=== PATIENT | male | born 1955 | race Caucasian/White ===

== ENCOUNTER → 2020-08-14 | Day surgery (SDC) | payer OTHER ==
[~2020-08-14] VITALS: Ht 170.2 cm; Wt 105.8 kg
[~2020-08-14] MED LIST: FLOMAX 0.4 MG0.4 MG PO; KEFLEX500 MG PO; MAG-OXIDE 400M400 MG PO; NORCO 5-325 TA1 EAC1 PO; OSTERA TABLET1 EACH PO; PEPCID AC20 MG PO; PERCOCET 5-3251 EACH PO; VIBRAMYCIN100 MG PO; VOLTAREN **OUT50 MG PO; ZOFRAN4 MG PO
[2020-08-14 07:47] LABS: HCT 44.5 % (42.0-52.0); HGB 15.1 g/dl (13.2-18.0); MCH 30.2 pg (25.0-31.0); MCHC 33.9 g/dL (32.0-36.0); MPV 9.9 fL (6.0-9.5); RDW 12.8 % (11.5-14.0); WBC 5.3 K/uL (4.0-10.5)
[2020-08-14 08:04] LABS: BUN/CREAT RATIO (CALC) 19.8 RATIO; CREATININE 0.91 mg/dL (0.67-1.17); GLOBULIN (CALCULATION) 3.1 g/dL; POTASSIUM 3.7 mmol/L (3.5-5.1); TOTAL PROTEIN 7.1 g/dL (6.4-8.2)
== END | disposition home or self-care (01) ==
LOC: FAS 06:53
PROVIDERS: Surgery
DX: Z12.11 Encounter for screening for malignant neoplasm of colon (principal); K63.5 Polyp of colon; Z83.71 Family history of colonic polyps; E78.5 Hyperlipidemia, unspecified; K21.9 Gastro-esophageal reflux disease without esophagitis; I10 Essential (primary) hypertension; N40.0 Benign prostatic hyperplasia without lower urinary tract symptoms
CPT/HCPCS: 36415; 80053; J2704

== ENCOUNTER 2021-11-11 10:05 | Inpatient (IN) | payer MEDICARE, OTHER ==
[~2021-11-11] VITALS: Ht 170.2 cm; Wt 105.3 kg
[2021-11-11 10:58] LABS: BASOPHIL 0.5 % (0-2); EOSINOPHIL 2.3 % (0-7); HCT 47.8 % (42.0-52.0); HGB 15.9 g/dl (13.2-18.0); LYMPHOCYTE 17.1 % (15-48); MCHC 33.3 g/dL (32.0-36.0); MCV 90.2 fL (78.0-100.0); MONOCYTE 7.4 % (0-12); MPV 9.6 fL (6.0-9.5); NEUTROPHIL 72.1 % (41-80); NRBC 0; PLT 164 K/uL (150-400); RDW 12.9 % (11.5-14.0); WBC 9.3 K/uL (4.0-10.5)
[2021-11-11 11:01] LABS: D-DIMER 0.44 ug/mLFEU (0.00-0.41)
[2021-11-11 11:02] LABS: INR 1.01 (0.9-1.2); PTT 25.7 SECONDS (24.9-34.6)
[2021-11-11 11:05] LABS: ALBUMIN 3.7 g/dL (3.4-5.0); ALKALINE PHOSHATASE 65 U/L (46-116); ALT 34 U/L (16-63); AST 20 U/L (15-37); BILIRUBIN - TOTAL 0.6 mg/dL (0.2-1.0); BUN 19 mg/dL (7-18); BUN/CREAT RATIO (CALC) 18.4 RATIO; CHLORIDE 103 mmol/L (98-107); CO2 (BICARBONATE) 24 mmol/L (21-32); CREATININE 1.03 mg/dL (0.67-1.17); GLOBULIN (CALCULATION) 3.3 g/dL; GLUCOSE 148 mg/dL (74-106); POTASSIUM 4.5 mmol/L (3.5-5.1)
[2021-11-11 11:48] LABS: CORONAVIRUS 2019 SARS-COV-2 NEGATIVE (NEGATIVE); INFLUENZA A NAA NEGATIVE (NEGATIVE)
[2021-11-11] MEDS ORDERED: VIBRAMYCIN100 MG PO (14:34)
[2021-11-11] MEDS ORDERED: PRINIVIL10 MG PO ×2 (14:34)
[2021-11-11] MEDS ORDERED: DUONEB 2.5-0.5M1 AMP INH (14:36)
[2021-11-12 07:31] LABS: BASOPHIL 0.1 % (0-2); EOSINOPHIL 0 % (0-7); HCT 45.8 % (42.0-52.0); HGB 15.4 g/dl (13.2-18.0); LYMPHOCYTE 6.6 % (15-48); MCH 30.1 pg (25.0-31.0); MCHC 33.6 g/dL (32.0-36.0); MCV 89.6 fL (78.0-100.0); MONOCYTE 0.7 % (0-12); MPV 10.1 fL (6.0-9.5); NEUTROPHIL 91.9 % (41-80); NRBC 0; PLT 180 K/uL (150-400); RBC 5.11 M/uL (4.70-6.00); RDW 12.5 % (11.5-14.0)
[2021-11-12 07:32] LABS: WBC 17.8 K/uL (4.0-10.5)
[2021-11-12 07:44] LABS: BUN 25 mg/dL (7-18); BUN/CREAT RATIO (CALC) 29.8 RATIO; CHLORIDE 102 mmol/L (98-107); CO2 (BICARBONATE) 23 mmol/L (21-32); CREATININE 0.84 mg/dL (0.67-1.17); GLUCOSE 165 mg/dL (74-106); MAGNESIUM 2.2 mg/dL (1.8-2.4); POTASSIUM 4.3 mmol/L (3.5-5.1)
[2021-11-12 07:45] LABS: C-REACTIVE PROTEIN <0.20 mg/dL (<=0.90)
[2021-11-14] MEDS ORDERED: CEFDINIR300 MG PO (10:43)
[2021-11-14] MEDS ORDERED: PREDNISONE20 MG PO (10:43)
[2021-11-14] MEDS ORDERED: VENTOLIN HFA IN18 GM INH (10:43)
--- NOTE | 2021-11-14 13:21 | NUR ---
11/14/21 Mr. Soriano lives at home with his spouse. He has a nebulizer. Mr. Soriano reports to be able to meet his financial obligations. - A referral was made to [facility] for home 02 @ 1 L per patient choice.
== END 2021-11-14 13:30 | disposition home or self-care (01) | DRG 189 ==
LOC: FER 10:05 → FMS 13:03
PROVIDERS: Internal Medicine; ADMIT Internal Medicine
DX: J96.01 Acute respiratory failure with hypoxia (principal); J45.901 Unspecified asthma with (acute) exacerbation; Z20.822 Contact with and (suspected) exposure to COVID-19; L08.9 Local infection of the skin and subcutaneous tissue, unspecified; I10 Essential (primary) hypertension; J32.9 Chronic sinusitis, unspecified; J20.9 Acute bronchitis, unspecified; K21.9 Gastro-esophageal reflux disease without esophagitis; Z90.49 Acquired absence of other specified parts of digestive tract; Z79.899 Other long term (current) drug therapy; Z28.311 Partially vaccinated for COVID-19
CPT/HCPCS: 36415; 36600; 70450; 71250; 80048; 80053; 82803; 83735; 83880; 84145; 84484; 85025; 85379; 85610; 85730; 86140; 87070; 87205; 93005; 94640; 94664; 94667; 94668; 94760; 94762; G0378; J0696; J1100; J1650; J1885; J2930; U0002